=== PATIENT | female | born 1960 | race Caucasian/White ===

== ENCOUNTER 2017-01-30 18:13 | Emergency (ER) | payer MEDICAID ==
[2017-01-30 19:24] VITALS: BP 154/100
[2017-01-30] MEDS ORDERED: Acetaminophen/HYDROcodone 325-5 MG Tab PO ONE (19:39)
[2017-01-30] MEDS ORDERED: Ketorolac 60 MG/2 ML SDV IM ONE (19:40)
--- NOTE | 2017-01-30 19:42 | EDM.PDOC ---
ED HPI GENERAL MEDICAL PROBLEM - General Chief Complaint: Upper Extremity Injury/Pain Stated Complaint: SMASHED FINGER Time Seen by Provider: 01/30/17 19:20 Source of Information: Reports: Patient History Limitations: Reports: No Limitations - History of Present Illness INITIAL COMMENTS - FREE TEXT/NARRATIVE: Stephanie presents to the ER tonight due to left 4th finger injury. She had her finger smashed between two pieces of wood today at 1600. She developed swelling and pain to the finger tip. Her use a needle to try to puncture the finger pad to let blood drain with no significant results. Onset: Today Onset Date: 01/30/17 Onset Time: 16:00 Duration: Constant Quality: Reports: Ache, Dull, Throbbing Improves with: Reports: Rest Worsens with: Reports: Movement left ring finger Pain Score (Numeric/FACES): 4 - Related Data Allergies Allergy/AdvReac Type Severity Reaction Status Date / Time No Known Allergies Allergy Verified 01/30/17 19:26 Home Meds: Home Meds Metoprolol Tartrate [Lopressor] 25 mg PO DAILY 02/17/13 [History] Multivitamin [Multivitamins] 1 cap PO DAILY 02/17/13 [History] Venlafaxine HCl [Venlafaxine ER] 75 mg PO DAILY 02/17/13 [History] Naproxen [EC-Naprosyn] 500 mg PO BID PRN 09/29/13 [History] oxyCODONE HCl [Oxycodone HCl] 5 - 10 mg PO Q3HR PRN 09/29/13 [History] Past Medical History - Past Health History Medical/Surgical History: Denies Medical/Surgical History 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: 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: - Past Surgical History Musculoskeletal Surgical History: Reports: Knee Replacement Social & Family History - Tobacco Use Smoking Status *Q: Never Smoker Years of Tobacco use: 30 Used Tobacco, but Quit: Yes Month Tobacco Last Used: April Hand Smoke Exposure: No - Caffeine Use Caffeine Use: Reports: Coffee - Alcohol Use Days Per Week of Alcohol Use: 0 - Recreational Drug Use Recreational Drug Use: No Review of Systems - Review of Systems Review Of Systems: See Below Constitutional: Denies: Chills, Diaphoresis, Fever, Weakness Eyes: Reports: No Symptoms Ears: Reports: No Symptoms Nose: Reports: No Symptoms Mouth/Throat: Reports: No Symptoms Respiratory: Denies: Shortness of Breath, Wheezing, Cough, Sputum Cardiovascular: Denies: Chest Pain, Edema, Lightheadedness, Palpitations, Syncope GI/Abdominal: Reports: No Symptoms Musculoskeletal: Reports: Other (left 4th finger pain) Skin: Reports: Bruising, Wound, Other (small puncture wound from needle to pad of left 4th finger. ) Neurological: Reports: No Symptoms Psychiatric: Reports: No Symptoms ED EXAM, GENERAL - Physical Exam Exam: See Below Free Text/Narrative:: Stephanie presents today with complaints of left 4th finger injury after it was smashed between two pieces of wood. She denies numbness or tingling. Exam Limited By: No Limitations General Appearance: Alert, WD/WN, Mild Distress Eye Exam: Bilateral Eye: EOMI, Normal Inspection, PERRL Ears: Normal External Exam, Normal Canal, Hearing Grossly Normal, Normal TMs Ear Exam: Bilateral Ear: Auricle Normal, Canal Normal, TM normal Nose: Normal Inspection, Normal Mucosa Throat/Mouth: Normal Inspection, Normal Lips, Normal Teeth, Normal Oropharynx, Normal Voice, No Airway Compromise Head: Atraumatic, Normocephalic Neck: Normal Inspection, Supple, Non-Tender, Full Range of Motion. No: Lymphadenopathy (R), Lymphadenopathy (L) Respiratory/Chest: No Respiratory Distress, Lungs Clear, Normal Breath Sounds, No Accessory Muscle Use, Chest Non-Tender Cardiovascular: Normal Peripheral Pulses, Regular Rate, Rhythm, No Edema, No Murmur, No Rub Peripheral Pulses: 2+: Radial (L), Radial (R) Back Exam: Normal Inspection, Full Range of Motion. No: CVA Tenderness (R), CVA Tenderness (L) Extremities: No Pedal Edema, Normal Capillary Refill, Limited Range of Motion, Redness, Other (Tenderness to left 4th distal phalanx) Neurological: Alert, Oriented, CN II-XII Intact, Normal Cognition, Normal Gait, Normal Reflexes, No Motor/Sensory Deficits Psychiatric: Normal Affect, Normal Mood Skin Exam: Warm, Dry, Ecchymosis, Other (edema of left 4th distal phalanx) Lymphatic: No Adenopathy Course - Vital Signs Last Recorded V/S: Last Vital Signs Temp 35.2 C 01/30/17 19:25 Pulse 73 01/30/17 19:25 Resp 20 01/30/17 19:25 BP 154/100 H 01/30/17 19:25 Pulse Ox 98 01/30/17 19:25 - Orders/Labs/Meds Orders: Active Orders 24 hr Category Date Time Status Vaccines to be Administered [RC] PER UNIT ROUTINE Care 01/30/17 20:22 Active Fingers Fourth Digit Lt F3 [CR] Stat Exams 01/30/17 19:39 Taken Meds: Medications Discontinued Medications Generic Name Dose Route Start Last Admin Trade Name Brainq PRN Reason Stop Dose Admin Hydrocodone Bitart/Acetaminophen 1 tab 01/30/17 19:39 01/30/17 19:56 Whately 325-5 Mg PO 01/30/17 19:40 1 tab ONETIME ONE Administration Diphtheria/Tetanus/Acell Pertussis 0.5 ml 01/30/17 20:21 Adacel IM 01/30/17 20:22 .ONCE ONE Ketorolac Tromethamine 60 mg 01/30/17 19:40 01/30/17 19:56 Toradol IM 01/30/17 19:41 60 mg ONETIME ONE Administration - Radiology Interpretation Free Text/Narrative:: Left 4th finger x-ray wet read, appears to have a tuft fracture. Radiologist read pending. - Re-Assessments/Exams Free Text/Narrative Re-Assessment/Exam: 01/30/17 20:22 Pain slightly improved after medications. Fold over aluminum Finger splint fitted and secured with manfred wrap. Patient also provided Stax finger splint to use as well. Education on use of finger splint and fracture care as well as signs of infection. Departure - Departure Time of Disposition: 20:26 Disposition: Home, Self-Care 01 Condition: Good Clinical Impression: Closed fracture of tuft of distal phalanx of finger, Traumatic hematoma of finger, Tetanus - Discharge Information Instructions: Finger Fracture Referrals: Windy Santos PA [Primary Care Provider] - Forms: ED Department Discharge Additional Instructions: You were evaluated and treated for a closed fracture of the tuft of distal phalanx 4th finger and traumatic hematoma to distal left phalanx. Tetanus status updated. An aluminum fold over splint was placed and you were provided with a stax finger spint for use as well. Wear splint at all times except with bathing for 6 to 8 weeks until fracture is healed. You can take ibuprofen 800mg by mouth three times a day for pain as needed. You can also take one of your hydrocodone 5/325mg tablets three times a day as needed for pain that you have left over from a previous back surgery. Follow up with an Orthopedic provider or your primary provider in 2 weeks for a recheck. Return for worsening issues or concerns. Watch for signs of infection such as significant redness warmth or pain. - My Orders Last 24 Hours: My Active Orders 01/30/17 19:39 Fingers Fourth Digit Lt F3 [CR] Stat 01/30/17 20:22 Vaccines to be Administered [RC] PER UNIT ROUTINE - Assessment/Plan Last 24 Hours: My Active Orders 01/30/17 19:39 Fingers Fourth Digit Lt F3 [CR] Stat 01/30/17 20:22 Vaccines to be Administered [RC] PER UNIT ROUTINE Assessment:: Patient has closed fracture of the tuft of distal phalanx 4th finger and traumatic hematoma to distal left phalanx. Tetanus status updated. Fold over aluminum Finger splint fitted and secured with manfred wrap. Patient also provided Stax finger splint to use as well. Education on use of finger splint and fracture care as well as signs of infection. Plan: Patient evaluated and treated for a closed fracture of the tuft of distal phalanx 4th finger and traumatic hematoma to distal left phalanx. An aluminum fold over splint was placed and she was provided with a stax finger spint for use as well. Wear splint at all times except with bathing for 6 to 8 weeks until fracture is healed. She can take ibuprofen 800mg by mouth three times a day for pain as needed. She can also take one of her hydrocodone 5/325mg tablets three times a day as needed for pain that she have left over from a previous back surgery. Follow up with an Orthopedic provider or your primary provider in 2 weeks for a recheck. Return for worsening issues or concerns. Watch for signs of infection such as significant redness warmth or pain.
[2017-01-30] MEDS ORDERED: Diphtheria,Pertussis(Acell),Tetanus Vaccine 0.5 ML SDV IM ONE (20:21)
--- NOTE | 2017-02-01 09:12 | CR ---
Fingers Fourth Digit Lt F3 HISTORY: smashed 4th finger between pieces of wood FINDINGS: There is subtle linear lucency suspicious for nondisplaced fracture tuft of the distal phal anx left fourth finger. No other fracture or dislocation left fourth digit is identified. No foreign body can be seen. Soft tissues are unremarkable. IMPRESSION: Possible subtle nondisplaced fracture tuft of the distal phalanx left fourth finger.
== END 2017-01-30 20:45 | disposition home or self-care (01) ==
LOC: JP.ED 18:13
DX: S62.665A Nondisplaced fracture of distal phalanx of left ring finger, initial encounter for closed fracture (principal); I10 Essential (primary) hypertension; Z87.891 Personal history of nicotine dependence; Z23 Encounter for immunization; Z79.899 Other long term (current) drug therapy; W23.0XXA Caught, crushed, jammed, or pinched between moving objects, initial encounter
CPT/HCPCS: 73140; 90715; 96372; 99284; A9270; J1885; 90471

== ENCOUNTER 2023-05-16 23:02 | Emergency (ER) | payer BC ==
[2023-05-16 23:17] VITALS: BP 147/82; PULSE 73
[2023-05-16 23:53] LABS: CORONAVIRUS COVID-19 NAA NEGATIVE (NEGATIVE); INFLUENZA A NAA NEGATIVE (NEGATIVE); INFLUENZA B NAA NEGATIVE (NEGATIVE); RESPIRATORY SYNCYTIAL VIR NAA NEGATIVE (NEGATIVE)
[2023-05-17] MEDS ORDERED: Dexamethasone 4 MG/ML SDV PO ONE (00:27)
== END 2023-05-17 00:38 | disposition home or self-care (01) ==
LOC: JP.ED 23:02
DX: J01.00 Acute maxillary sinusitis, unspecified (principal); I10 Essential (primary) hypertension
CPT/HCPCS: 0241U; 87651; 99283

== ENCOUNTER 2024-06-12 06:39 | Day surgery (SDC) | payer BC ==
[2024-06-12] MEDS: Lactated Ringers 1,000 ML IV SCH (06:52)
[2024-06-12] MEDS ORDERED: Propofol 200 MG/20 ML SDV ONE (07:18)
[2024-06-12] MEDS ORDERED: Midazolam 1 MG/ML 2 ML SDV ONE (07:18)
[2024-06-12] MEDS ORDERED: fentaNYL 50 MCG/ML SDV ONE (07:18)
[2024-06-12 09:32] VITALS: BP 111/56; PULSE 62
== END 2024-06-12 09:54 | disposition home or self-care (01) ==
LOC: JP.SDS 06:39
PROVIDERS: ATTEND Surgery
DX: Z12.11 Encounter for screening for malignant neoplasm of colon (principal); K57.30 Diverticulosis of large intestine without perforation or abscess without bleeding; I10 Essential (primary) hypertension; Z91.040 Latex allergy status
CPT/HCPCS: 45378; J2250; J2704; J3010; J7120